=== PATIENT | female | born 1945 | race Caucasian/White ===

== ENCOUNTER 2017-11-04 13:48 | Emergency (ER) | payer MEDICARE, SELFPAY ==
[2017-11-04 13:50] VITALS: BP 188/110; PULSE 112; RESP 16; TEMP 36.6; O2SAT 98; BMI 24.7
--- NOTE | 2017-11-04 14:08 | EKG12_ITS ---
Test Reason : ADN LABS Blood Pressure : / mmHG Vent. Rate : 104 BPM Atrial Rate : 104 BPM P-R Int : 130 ms QRS Dur : 070 ms QT Int : 314 ms P-R-T Axes : 052 031 -03 degrees QTc Int : 412 ms Sinus tachycardia Otherwise normal ECG Confirmed by FREDERIC NOVOA, JOAQUÍN ([id number]), magazine editor SAIBNE OSHEA ([id number]) on 11/08/2017 1:41:03 PM Referred By: AMBAR Confirmed By:JOAQUÍN DE LA GARZA MD
--- NOTE | 2017-11-04 14:11 | NURSING ---
NO OLD EKGS
--- NOTE | 2017-11-04 14:36 | ED.DCSUM_ITS ---
- ER Visit Summary Date of Service: 11/04/17 Chief Complaint: Pulmonary embolism History of Present Illness: The patient is a 72 F who 1 month ago was diagnosed with endometrial uterine cancer. She is being seen at [facility] by gynecology oncology. The patient is part of a preoperative planning for hysterectomy in [address] of the chest abdomen pelvis with IV contrast at the [facility]. Her doctor called her and informed her that she had bilateral pulmonary embolisms. Patient states she has had 2 weeks of shortness of breath. She denies any chest pain. She denies any significant cough. She notes dyspnea on exertion. No palpitations. 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 She denies any leg swelling. No leg pain. She states that she has not had any recent travel but does note that she has an laying around more so than she ever has in the past. Physical Examination: Afebrile vital signs are stable. Noted heart rate 112. Gen: Well-nourished well-developed Head: Normocephalic atraumatic Eyes: Perrl EOMI ENT: TMs clear no rhinorrhea moist mucous membranes Neck: Supple no lymphadenopathy no JVD nontender CVS: Regular rate rhythm no murmurs normal S1-S2 Respiratory: No distress clear to auscultation bilaterally chest nontender Abdomen: Soft nontender nondistended normal bowel sounds no masses Back: Nontender Extremity: Nontender no edema no palpable cords Skin: Normal color no rash Neuro: alert orientated ?3 CN II-XII intact normal strength sensation reflexes gait cerebellar Psych: Normal affect normal mood Test Results: EKG shows a sinus tachycardia at a rate of 104. No significant right heart strain noted. Troponin is 0.054. Emergency Department Course and Treatment: Patient is not hypoxic. His heart rate is down into the 90s. Spoke with Dr. Rodrigues as well as Dr. Murray from [facility] Perpetual Inventory Clerk/Onc who is covering Dr. Berger. Plan is outpatient treatment with Lovenox and follow-up in the office. Impression: 1. Bilateral pulmonary embolism This note was generated with [employer] dictation software. It may contain incorrect words, spelling, and punctuation that were not noted in review of the chart prior to signing ED Disposition - Plan for ED Patient: Disposition: Home or Assisted Living Chief Complaint: Abn Labs Instructions: Pulmonary Embolism Prescriptions: Enoxaparin Sodium [Lovenox] 90 mg SQ DAILY 30 Days syringe Referrals: Sanket Berger [NON-STAFF] - (call to arrange follow up appointment)
[2017-11-04 14:40] LABS: Absolute Lymphocyte Count 1.55 X10^3/ul (0.83-4.51); Absolute Neutrophil Count 13.3 X10^3/uL (2.0-7.7); Basophil# 0.02 X10^3/uL; Basophil% 0.1 % (0-1); Eosinophil# 0.13 X10^3/uL; Eosinophils% 0.8 % (0-5); Hematocrit 32.7 % (37-47); Hemoglobin 9.7 g/dl (12.0-15.0); Lymphocyte # 1.55 X10^3/ul (4.0); Lymphocyte % 9.6 % (19-41); Mean Corp Hgb Conc 29.7 g/gl (32-36); Mean Corpuscular Hgb 22.7 pg (27.0-32.0); Mean Corpuscular Volume 76.4 fL (81-99); Mean Platelet Vol. 8.5 fl (6.2-12.0); Monocyte# 1.14 X10^3/uL; Monocyte% 7.1 % (0-10); Neutrophil # 13.25 X10^3/uL (2.7-7.7); Neutrophil % 82.2 % (47-70); POSITIVE COUNT NO; POSITIVE DIFFERENTIAL NO; POSITIVE MORPHOLOGY NO; Platelet Count 225 K/mm3 (150-450); RBC Distribution Width CV 15.8 % (11.6-14.6); RBC Distribution Width SD 43.7 fl (35.1-43.9); Red Blood Count 4.28 M/mm3 (4.2-5.4); White Blood Count 16.1 K/mm3 (4.4-11.0)
[2017-11-04 14:45] LABS: International Normalized Ratio 1.2; Prothrombin Time (Protime)PT. 15.3 SECONDS (11.7-14.9)
[2017-11-04 14:46] LABS: Partial Thromboplast Time 32.3 Seconds (24.1-36.2)
--- NOTE | 2017-11-04 14:46 | NURSING ---
CALLED [facility] TO GET RESULTS OF CT DONE THIS MORNING, NO ONE ANSWERED THE PHONE. CALLED NUMEROUS TIME. CALLED [facility] AND LEFT MESSAGE. THEN FAXED A RELEASE OF INFO FOR THE RESULTS
[2017-11-04 14:52] LABS: ALB/GLOB Ratio 0.6 RATIO (0.9-2.4); AST(SGOT) 24 U/L (15-37); Alanine Aminotransfer ALT/SGPT 28 U/L (13-56); Albumin, Serum 2.9 g/dL (3.2-5.0); Alkaline Phosphatase 151 U/L (45-117); Anion Gap 10 (5-15); BUN 9 mg/dL (7-18); BUN/Creat Ratio 10.2 RATIO (10-20); Calcium,Total 8.5 mg/dL (8.5-10.1); Chloride 99 mmol/L (98-107); Creatinine, Serum 0.88 mg/dL (0.55-1.02); EST Glomerular Filtration Rate 67 mL/min (>60); Est Glom Filt Rate - Afr Amer 81 mL/min (>60); Estimated Creatinine Clearance 46.38 ml/min; Glucose 102 mg/dL (74-106); Potassium 3.8 mmol/L (3.5-5.1); Protein, Total 7.9 g/dL (6.4-8.2); Sodium Level 135 mmol/L (136-145)
[2017-11-04 15:01] VITALS: BP 188/89; PULSE 103; RESP 24; O2SAT 94
--- NOTE | 2017-11-04 15:02 | NURSING ---
FAX OF CT RESULTS CAME THROUGH
--- NOTE | 2017-11-04 15:48 | NURSING ---
CALLING [facility] FOR TRANSFER
--- NOTE | 2017-11-04 15:58 | NURSING ---
DR YANG FOR DR RANDLE
[2017-11-04 16:44] VITALS: PULSE 104; RESP 18; O2SAT 93
[2017-11-04] MEDS: Enoxaparin 100 MG/ML Syringe 90 MG SC (16:44)
--- NOTE | 2017-11-04 18:14 | PCM.HOSP.N ---
Hospitalist Note Hospitalist note: I was asked to see Anh Logan by the emergency room physician today-Dr. Lagos, she had a CT of her abdomen and pelvis as well as a CT of her chest performed today at the request of her gynecological oncologist, she was recently diagnosed with uterine cancer and is being seen at the main campus at [facility]. Scans today showed widespread uterine cancer and the presence of bilateral pulmonary emboli. Patient had been complaining of some shortness of breath over the last few days but no chest pain and her pulse ox in the emergency room on room air was 97%. I felt it was safe for the patient to be discharged home on Lovenox but my only question was whether her gynecological oncologist in [place] would want her transferred to [place] for possible vena caval filter placement. I contacted the on-call doctor for her gynecological oncologist and he stated that he would advise only treating with Lovenox and have the patient follow up by phone this Tuesday for further instructions. He stated that because of the extent of her uterine cancer on the scans today, patient would need to be treated with chemotherapy first and then have a vena caval filter inserted before she had her debulking procedure. I explained all this to the patient and her , patient wanted to be discharged home and felt that she felt well enough to go home and understood that she had to take the Lovenox. health services director checked on her prescription plan for her Lovenox and she was given a dose of Lovenox 100 mg subcu by the emergency room physician prior to her discharge today.
--- NOTE | 2017-11-04 18:17 | CCHN_ITS ---
Hospitalist Note Hospitalist note: I was asked to see Anh Logan by the emergency room physician today-Dr. Lagos, she had a CT of her abdomen and pelvis as well as a CT of her chest performed today at the request of her gynecological oncologist, she was recently diagnosed with uterine cancer and is being seen at the main campus at [facility]. Scans today showed widespread uterine cancer and the presence of bilateral pulmonary emboli. Patient had been complaining of some shortness of breath over the last few days but no chest pain and her pulse ox in the emergency room on room air was 97%. I felt it was safe for the patient to be discharged home on Lovenox but my only question was whether her gynecological oncologist in [place] would want her transferred to [place] for possible vena caval filter placement. I contacted the on-call doctor for her gynecological oncologist and he stated that he would advise only treating with Lovenox and have the patient follow up by phone this Tuesday for further instructions. He stated that because of the extent of her uterine cancer on the scans today, patient would need to be treated with chemotherapy first and then have a vena caval filter inserted before she had her debulking procedure. I explained all this to the patient and her , patient wanted to be discharged home and felt that she felt well enough to go home and understood that she had to take the Lovenox. business services sales agent checked on her prescription plan for her Lovenox and she was given a dose of Lovenox 100 mg subcu by the emergency room physician prior to her discharge today.
== END 2017-11-04 16:45 | disposition home or self-care (01) ==
PROVIDERS: Emergency Provider Emergency Medicine
DX: I26.99 Other pulmonary embolism without acute cor pulmonale (principal); C54.1 Malignant neoplasm of endometrium; Z79.01 Long term (current) use of anticoagulants
CPT/HCPCS: 80053; 84484; 85025; 85610; 85730; 93005; 96372; 99284